=== PATIENT | male | born 2005 | race Hispanic/Latino ===

== ENCOUNTER 2024-01-13 15:33 | Inpatient (IN) | payer OTHER ==
[~2024-01-13] VITALS: Ht 172.7 cm; Wt 83.6 kg
[2024-01-13 15:57] LABS: HEMATOCRIT 44.7 % (42.0-52.0); HEMOGLOBIN 15.3 g/dl (13.5-17.5); MEAN CORPUSCULAR HEMOGLOBIN 29.4 pg (27.0-33.0); MEAN CORPUSCULAR HGB CONC 34.2 g/dl (32.0-36.5); PLATELET COUNT, AUTOMATED 278 10^3/uL (150-450); WHITE BLOOD COUNT 7.3 10^3/uL (4.0-10.0)
[2024-01-13 16:25] LABS: ETHYL ALCOHOL (ETHANOL) < 0.003 % (0.000-0.010)
[2024-01-13 16:26] LABS: SALICYLATE LEVEL < 3.0 MG/DL (<30)
[2024-01-13 16:31] LABS: ALBUMIN 4.5 G/DL (3.2-5.2); ALKALINE PHOSPHATASE 110 U/L (46-116); ALT/SGPT 18 U/L (7.0-40); AST/SGOT 13 U/L (<34); BILIRUBIN,DIRECT 0.5 MG/DL (<0.4); BLOOD UREA NITROGEN 10 MG/DL (9-23); CALCIUM LEVEL 9.5 MG/DL (8.5-10.1); CARBON DIOXIDE LEVEL 25 MMOL/L (20-31); CHLORIDE LEVEL 110 MMOL/L (98-107); CREATININE FOR GFR 0.73 MG/DL (0.70-1.30); GLUCOSE, FASTING 89 MG/DL (60-100); POTASSIUM SERUM 4.1 MMOL/L (3.5-5.1); SODIUM LEVEL 142 MMOL/L (136-145); TOTAL PROTEIN 7.8 G/DL (5.7-8.2)
[2024-01-13 16:49] LABS: BILIRUBIN,TOTAL 1.6 MG/DL (0.3-1.2)
[2024-01-13] MEDS ORDERED: SERT25TA21 PO (18:17)
[2024-01-13] MEDS ORDERED: HYDR1CAP25 PO (18:17)
[2024-01-13 18:19] LABS: AMPHETAMINES LEVEL URINE NEGATIVE (NEGATIVE); BARBITURATES URINE NEGATIVE (NEGATIVE); CANNABINOIDS URINE NEGATIVE (NEGATIVE); COCAINE METABOLITE URINE NEGATIVE (NEGATIVE); METHADONE URINE NEGATIVE (NEGATIVE); OPIATES URINE NEGATIVE (NEGATIVE); PHENCYCLIDINE URINE NEGATIVE (NEGATIVE)
[2024-01-13 18:20] LABS: BENZODIAZEPINES URINE NEGATIVE (NEGATIVE)
[2024-01-13] MEDS ORDERED: HOME MED LIST COMPLETE! XX SCH (18:20)
[2024-01-13] MEDS ORDERED: traZODone 50 MG TAB PO PRN (18:30)
[2024-01-13] MEDS ORDERED: MAALOX 30 ML SUSP *UDC PO PRN (18:30)
[2024-01-13] MEDS ORDERED: diphenhydrAMINE 25MG CAP PO PRN (18:30)
[2024-01-13] MEDS ORDERED: IBUPROFEN 400MG TAB PO PRN (18:30)
[2024-01-13] MEDS ORDERED: MOM 30ML SUSPENSION UDC PO PRN (18:30)
[2024-01-13] MEDS ORDERED: ACETAMINOPHEN TAB 650MG DOSE (2X325MG) PO PRN (18:30)
[2024-01-13 21:14] VITALS: BP 112/73; TEMP 98.8; O2SAT 98
[2024-01-14 06:02] VITALS: BP 109/59; TEMP 97.8; O2SAT 98
[2024-01-14] MEDS: SERTRALINE HCL 25 MG TABLET PO SCH (10:17)
[2024-01-14 17:10] VITALS: BP 139/72; TEMP 97.4; O2SAT 98
[2024-01-15 06:40] VITALS: BP 109/57; TEMP 98.6; O2SAT 99
[2024-01-15] MEDS ORDERED: SERT-141 PO (09:40)
== END 2024-01-15 11:05 | disposition home or self-care (01) | DRG 885 ==
LOC: M ED 15:33 → M ED INP 18:26 → M PSY 20:24
PROVIDERS: ADMIT Psychiatry & Neurology Child & Adolescent Psychiatry; ATTEND Psychiatry & Neurology Child & Adolescent Psychiatry
DX: F33.1 Major depressive disorder, recurrent, moderate (principal); R45.851 Suicidal ideations; F41.9 Anxiety disorder, unspecified; E80.6 Other disorders of bilirubin metabolism; Z56.6 Other physical and mental strain related to work; Z63.79 Other stressful life events affecting family and household; Z81.8 Family history of other mental and behavioral disorders; Z81.4 Family history of other substance abuse and dependence; Z79.899 Other long term (current) drug therapy; Z91.018 Allergy to other foods

== ENCOUNTER 2024-03-12 11:13 | Emergency (ER) | payer OTHER ==
[~2024-03-12] VITALS: Ht 170.2 cm; Wt 79.4 kg
[~2024-03-12 11:13] MED LIST: HYDR1CAP25 PO; SERT-141 PO; SERT25TA21 PO
[2024-03-12 11:22] VITALS: BP 132/65; TEMP 97.1; O2SAT 100
[2024-03-12] MEDS: LIDOCAINE 1% MDV 20ML VIAL SC ONE (13:00)
[2024-03-12] MEDS ORDERED: CEPH500C PO (13:24)
== END 2024-03-12 13:33 | disposition home or self-care (01) ==
LOC: M ED 11:13
DX: L03.011 Cellulitis of right finger (principal); F41.9 Anxiety disorder, unspecified; F32.A Depression, unspecified; Z91.09 Other allergy status, other than to drugs and biological substances; Z79.2 Long term (current) use of antibiotics; Z79.899 Other long term (current) drug therapy

== ENCOUNTER 2024-04-09 09:25 | Inpatient (IN) | payer OTHER ==
[~2024-04-09] VITALS: Ht 172.7 cm; Wt 75.3 kg
[~2024-04-09 09:25] MED LIST changes: +CEPH500C PO
[2024-04-09] MEDS ORDERED: CALCTAB93 (09:38)
[2024-04-09] MEDS ORDERED: BUPR150T12 PO (09:38)
[2024-04-09 10:26] LABS: HEMATOCRIT 47.4 % (42.0-52.0); HEMOGLOBIN 16.3 g/dl (13.5-17.5); MEAN CORPUSCULAR HEMOGLOBIN 29.3 pg (27.0-33.0); MEAN CORPUSCULAR HGB CONC 34.4 g/dl (32.0-36.5); MEAN CORPUSCULAR VOLUME 85.1 fl (80.0-96.0); PLATELET COUNT, AUTOMATED 330 10^3/uL (150-450); RED BLOOD COUNT 5.57 10^6/uL (4.30-6.10); WHITE BLOOD COUNT 7.9 10^3/uL (4.0-10.0)
[2024-04-09 10:52] LABS: BARBITURATES URINE NEGATIVE (NEGATIVE); BENZODIAZEPINES URINE NEGATIVE (NEGATIVE); COCAINE METABOLITE URINE NEGATIVE (NEGATIVE); METHADONE URINE NEGATIVE (NEGATIVE); OPIATES URINE NEGATIVE (NEGATIVE)
[2024-04-09 10:53] LABS: AMPHETAMINES LEVEL URINE POSITIVE (NEGATIVE); CANNABINOIDS URINE NEGATIVE (NEGATIVE); PHENCYCLIDINE URINE NEGATIVE (NEGATIVE)
[2024-04-09 10:55] LABS: ETHYL ALCOHOL (ETHANOL) < 0.003 % (0.000-0.010)
[2024-04-09 10:57] LABS: ALBUMIN 4.9 G/DL (3.2-5.2); ALKALINE PHOSPHATASE 108 U/L (40-129); ALT/SGPT 21 U/L (7.0-40); AST/SGOT 12 U/L (<34); BILIRUBIN,DIRECT 0.7 MG/DL (<0.4); BILIRUBIN,TOTAL 2.2 MG/DL (0.3-1.2); BLOOD UREA NITROGEN 10 MG/DL (9-23); CALCIUM LEVEL 10.5 MG/DL (8.5-10.1); CARBON DIOXIDE LEVEL 22 MMOL/L (20-31); CHLORIDE LEVEL 107 MMOL/L (98-107); CREATININE FOR GFR 0.85 MG/DL (0.70-1.30); GLUCOSE, FASTING 96 MG/DL (60-100); SALICYLATE LEVEL < 3.0 MG/DL (<30); SODIUM LEVEL 140 MMOL/L (136-145); TOTAL PROTEIN 8.5 G/DL (5.7-8.2)
[2024-04-09] MEDS ORDERED: CALC500C14 PO (13:39)
[2024-04-09] MEDS ORDERED: HOME MED LIST COMPLETE! XX SCH (13:45)
[2024-04-09] MEDS ORDERED: ACETAMINOPHEN 325 MG TAB PO PRN (20:45)
[2024-04-09] MEDS ORDERED: MAALOX 30 ML SUSP *UDC PO PRN (20:45)
[2024-04-09] MEDS ORDERED: IBUPROFEN 400MG TAB PO PRN (20:45)
[2024-04-09] MEDS ORDERED: traZODone 50 MG TAB PO PRN (20:45)
[2024-04-09] MEDS ORDERED: MOM 30ML SUSPENSION UDC PO PRN (20:45)
[2024-04-09] MEDS ORDERED: diphenhydrAMINE 25MG CAP PO PRN (20:45)
[2024-04-10 06:42] VITALS: BP 138/62; TEMP 96.9; O2SAT 99
[2024-04-10 15:18] VITALS: BP 118/65; TEMP 98; O2SAT 98
[2024-04-11 08:19] VITALS: BP 129/71; TEMP 97.1; O2SAT 98
[2024-04-11] MEDS: CALCIUM CARBONATE 500 MG CHEW U/D PO ONE (09:26)
[2024-04-11] MEDS: buPROPion **XL** TABLET 150MG (WELLBUTRIN XL) PO SCH (09:26)
== END 2024-04-11 13:13 | disposition home or self-care (01) | DRG 885 ==
LOC: M ED 09:25 → M ED INP 20:43 → M PSY 21:29
PROVIDERS: ADMIT Psychiatry & Neurology Psychiatry; ATTEND Psychiatry & Neurology Psychiatry
DX: F29 Unspecified psychosis not due to a substance or known physiological condition (principal); F33.9 Major depressive disorder, recurrent, unspecified; F15.90 Other stimulant use, unspecified, uncomplicated; F17.290 Nicotine dependence, other tobacco product, uncomplicated; Z79.899 Other long term (current) drug therapy; Z91.048 Other nonmedicinal substance allergy status

== ENCOUNTER 2024-04-13 10:12 | Emergency (ER) | payer OTHER ==
[~2024-04-13] VITALS: Ht 172.7 cm; Wt 77.7 kg
[~2024-04-13 10:12] MED LIST changes: +BUPR150T12 PO; +CALC500C14 PO; +CALCTAB93
[2024-04-13] MEDS ORDERED: BENA25CA4 PO (12:45)
[2024-04-13] MEDS ORDERED: HYDR1CRE30 TOP (12:45)
[2024-04-13] MEDS: diphenhydrAMINE 25MG CAP PO ONE (12:48)
[2024-04-13] MEDS: HYDROCORTISONE 1% CREAM 30GM TOP ONE (12:49)
[2024-04-13 12:54] VITALS: BP 119/69; TEMP 97; O2SAT 99
== END 2024-04-13 12:55 | disposition home or self-care (01) ==
LOC: M ED 10:12
DX: S20.469A Insect bite (nonvenomous) of unspecified back wall of thorax, initial encounter (principal); Y92.9 Unspecified place or not applicable; Y93.9 Activity, unspecified; Y99.9 Unspecified external cause status; W57.XXXA Bitten or stung by nonvenomous insect and other nonvenomous arthropods, initial encounter; K21.9 Gastro-esophageal reflux disease without esophagitis; F41.9 Anxiety disorder, unspecified; F32.A Depression, unspecified; Z91.09 Other allergy status, other than to drugs and biological substances

== ENCOUNTER 2024-04-19 17:11 | Emergency (ER) | payer OTHER ==
[~2024-04-19] VITALS: Ht 172.7 cm; Wt 78.4 kg
[~2024-04-19 17:11] MED LIST changes: +BENA25CA4 PO; +HYDR1CRE30 TOP
[2024-04-19 18:37] VITALS: BP 115/63; TEMP 98; O2SAT 96
[2024-04-19 18:48] LABS: BASO # 0.1 10^3/uL (0.0-0.2); BASO % 0.6 % (0.0-1.0); EOS # 0.2 10^3/uL (0.0-0.5); EOS % 2.3 % (0.0-3.0); HEMATOCRIT 46.2 % (42.0-52.0); HEMOGLOBIN 15.9 g/dl (13.5-17.5); LYMPH # 2.4 10^3/uL (1.5-5.0); LYMPH % 30.5 % (24.0-44.0); MEAN CORPUSCULAR HEMOGLOBIN 29.5 pg (27.0-33.0); MEAN CORPUSCULAR HGB CONC 34.4 g/dl (32.0-36.5); MEAN CORPUSCULAR VOLUME 85.7 fl (80.0-96.0); MONO # 0.5 10^3/uL (0.0-0.8); MONO % 6.6 % (2.0-8.0); NEUTROPHILS # 4.7 10^3/uL (1.5-8.5); NEUTROPHILS % 59.7 % (36.0-66.0); PLATELET COUNT, AUTOMATED 275 10^3/uL (150-450); RED BLOOD COUNT 5.39 10^6/uL (4.30-6.10); WHITE BLOOD COUNT 7.9 10^3/uL (4.0-10.0)
[2024-04-19 19:06] LABS: LIPASE 30 U/L (12-53)
[2024-04-19 19:18] LABS: ALBUMIN 4.4 G/DL (3.2-5.2); ALKALINE PHOSPHATASE 102 U/L (40-129); ALT/SGPT 15 U/L (7.0-40); AST/SGOT 9 U/L (<34); BILIRUBIN,DIRECT 0.3 MG/DL (<0.4); BILIRUBIN,TOTAL 0.9 MG/DL (0.3-1.2); BLOOD UREA NITROGEN 9 MG/DL (9-23); CARBON DIOXIDE LEVEL 29 MMOL/L (20-31); CHLORIDE LEVEL 103 MMOL/L (98-107); CREATININE FOR GFR 0.74 MG/DL (0.70-1.30); GLUCOSE, FASTING 91 MG/DL (60-100); POTASSIUM SERUM 3.9 MMOL/L (3.5-5.1); SODIUM LEVEL 138 MMOL/L (136-145); TOTAL PROTEIN 7.9 G/DL (5.7-8.2)
== END 2024-04-19 20:22 | disposition home or self-care (01) ==
LOC: M ED 17:11
DX: K62.5 Hemorrhage of anus and rectum (principal); F41.9 Anxiety disorder, unspecified; F32.A Depression, unspecified; F17.290 Nicotine dependence, other tobacco product, uncomplicated; Z91.09 Other allergy status, other than to drugs and biological substances; Z79.899 Other long term (current) drug therapy

== ENCOUNTER 2024-04-27 11:14 | Emergency (ER) | payer OTHER ==
[~2024-04-27] VITALS: Ht 172.7 cm; Wt 77.3 kg
[2024-04-27] MEDS ORDERED: BUPR150T12 (11:33)
[2024-04-27 12:58] LABS: BASO % 0.5 % (0.0-1.0); EOS # 0.1 10^3/uL (0.0-0.5); EOS % 1.5 % (0.0-3.0); HEMATOCRIT 45.1 % (42.0-52.0); HEMOGLOBIN 15.1 g/dl (13.5-17.5); LYMPH # 2.2 10^3/uL (1.5-5.0); LYMPH % 36.9 % (24.0-44.0); MEAN CORPUSCULAR HEMOGLOBIN 29.2 pg (27.0-33.0); MEAN CORPUSCULAR HGB CONC 33.5 g/dl (32.0-36.5); MEAN CORPUSCULAR VOLUME 87.1 fl (80.0-96.0); MONO # 0.8 10^3/uL (0.0-0.8); MONO % 13.6 % (2.0-8.0); NEUTROPHILS # 2.8 10^3/uL (1.5-8.5); NEUTROPHILS % 47.3 % (36.0-66.0); PLATELET COUNT, AUTOMATED 240 10^3/uL (150-450); RED BLOOD COUNT 5.18 10^6/uL (4.30-6.10); WHITE BLOOD COUNT 5.9 10^3/uL (4.0-10.0)
[2024-04-27 13:03] LABS: C REACTIVE PROTEIN QUANTITATIV < 0.50 MG/DL (<1.0)
[2024-04-27 13:04] LABS: ALBUMIN 3.9 G/DL (3.2-5.2); ALKALINE PHOSPHATASE 101 U/L (40-129); ALT/SGPT 21 U/L (7.0-40); AST/SGOT 15 U/L (<34); BILIRUBIN,TOTAL 0.9 MG/DL (0.3-1.2); BLOOD UREA NITROGEN 9 MG/DL (9-23); CALCIUM LEVEL 9.9 MG/DL (8.5-10.1); CARBON DIOXIDE LEVEL 28 MMOL/L (20-31); CHLORIDE LEVEL 107 MMOL/L (98-107); CREATININE FOR GFR 0.68 MG/DL (0.70-1.30); GLUCOSE, FASTING 93 MG/DL (60-100); POTASSIUM SERUM 4.1 MMOL/L (3.5-5.1); SODIUM LEVEL 139 MMOL/L (136-145); TOTAL PROTEIN 7.2 G/DL (5.7-8.2)
[2024-04-27 13:17] VITALS: BP 123/57; TEMP 97.4; O2SAT 98
== END 2024-04-27 13:29 | disposition home or self-care (01) ==
LOC: M ED 11:14
DX: K92.2 Gastrointestinal hemorrhage, unspecified (principal); Z91.09 Other allergy status, other than to drugs and biological substances; Z79.899 Other long term (current) drug therapy

== ENCOUNTER 2024-06-08 08:42 | Emergency (ER) | payer OTHER ==
[~2024-06-08] VITALS: Ht 172.7 cm; Wt 80.0 kg
[~2024-06-08 08:42] MED LIST changes: +BUPR150T12
[2024-06-08] MEDS ORDERED: TRAZ-252 (08:50)
[2024-06-08] MEDS ORDERED: VENTAER INH (11:46)
[2024-06-08] MEDS ORDERED: BENZ200C70 PO (11:46)
[2024-06-08 11:53] VITALS: BP 119/73; TEMP 96.9; O2SAT 100
== END 2024-06-08 12:00 | disposition home or self-care (01) ==
LOC: M ED 08:42
DX: J20.9 Acute bronchitis, unspecified (principal); Z91.09 Other allergy status, other than to drugs and biological substances; Z79.51 Long term (current) use of inhaled steroids; Z79.899 Other long term (current) drug therapy